=== PATIENT | female | born 1950 ===

== ENCOUNTER 2018-01-03 12:43 | Emergency (ER) | payer MEDICARE ==
[2018-01-03 13:05] VITALS: BP 114/72; PULSE 75; RESP 16; TEMP 98.8; O2SAT 99
--- NOTE | 2018-01-03 13:17 | ED PDOC ---
Upper Extremity Pain/Injury Time Seen by Provider: 01/03/18 13:06 Chief Complaint (Nursing): Upper Extremity Problem/Injury Chief Complaint (Provider): Right Fourth Finger Injury History Per: Patient, Family (daughter) History/Exam Limitations: no limitations Onset/Duration Of Symptoms: Days (x1) Current Symptoms Are (Timing): Still Present Additional Complaint(s): 67 year old female presents to the ED for follow up of a right fourth digit injury. Patient reports yesterday she fell, and went to an urgent care for hand XRs, which showed dislocation to PIP and fracture of medial phalanx of right fourth finger. The daughter reports that her mother was instructed to follow up for possible surgical intervention, but patient was unaware of where to do so outpatient, so came to the ED for a referral. Patient has no other complaints at present. Right hand dominant. PMD: Maryjo Salazar Past Medical History Reviewed: Historical Data, Nursing Documentation, Vital Signs Vital Signs: Last Vital Signs Temp 98.8 F 01/03/18 13:02 Pulse 75 01/03/18 13:02 Resp 16 01/03/18 13:02 BP 114/72 01/03/18 13:02 Pulse Ox 99 01/03/18 13:02 - Medical History Other PMH: thyroid problem - Surgical History Surgical History: No Surg Hx - Family History Family History: States: Unknown Family Hx - Social History Current smoker - smoking cessation education provided: No Alcohol: None Drugs: Denies - Allergies Allergies/Adverse Reactions: Allergies Allergy/AdvReac Type Severity Reaction Status Date / Time No Known Allergies Allergy Verified 01/03/18 13:02 Review of Systems ROS Statement: Except As Marked, All Systems Reviewed And Found Negative Musculoskeletal: Positive for: Other (right fourth finger injury) Physical Exam - Reviewed Nursing Documentation Reviewed: Yes Vital Signs Reviewed: Yes - Physical Exam Comments: GENERAL APPEARANCE: Patient is awake, alert, oriented x 3, in no acute distress. SKIN: Warm, dry; (-) cyanosis NECK: Supple, FROM ENT: Mucus membranes moist. Airway patent, (-) stridor. RIGHT HAND: Splint in place to fourth digit. Splint was not removed for PE as patient states she was given strict instructions not to remove it, as finger kept dislocating in the urgent care. Sensation intact. Split clean and dry. NEURO AND PSYCH: Mental status as above. Gait steady, speech clear. (-) facial asymmetry - ECG O2 Sat by Pulse Oximetry: 99 (RA) Pulse Ox Interpretation: Normal Medical Decision Making Medical Decision Making: Time: 1314 Initial Impression: dislocation to PIP and fx of medial phalanx of right fourth finger, as per urgent care XR report Initial Plan: --No further intervention required in ED at this time. Patient provided with referral for both hand and plastics. Advised to keep splint intact, clean, and dry until follow up is arranged. Patient was instructed to call insurance company or PMD for a referral if unable to see referred providers from ED visit. Based on history, exam and diagnostic results plan will be for discharge and outpatient follow up. Advised to follow up with primary care physician/hand/plastics in 1-2 days without fail. Return to the emergency room at any time for any new or worsening symptoms. Patient states she fully agrees with and understands discharge instructions. States that she agrees with the plan and disposition. Verbalized and repeated discharge instructions and plan. I have given the patient opportunity to ask any additional questions. Scribe Attestation: Documented by Dee Lea acting as a scribe for Anuradha Hoffman PA-C. Provider Scribe Attestation: All medical record entries made by the Scribe were at my direction and personally dictated by me. I have reviewed the chart and agree that the record accurately reflects my personal performance of the history, physical exam, medical decision making, and the department course for this patient. I have also personally directed, reviewed, and agree with the discharge instructions and disposition. Disposition - Clinical Impression Clinical Impression: Fracture of middle phalanx of finger of right hand, Dislocation of finger PIP joint - Patient ED Disposition Is Patient to be Admitted: No Counseled Patient/Family Regarding: Diagnosis, Need For Followup - Disposition Referrals: Kiki Dahl MD [Medical Doctor] - Eyal Case MD [Medical Doctor] - Disposition: Routine/Home Disposition Time: 13:16 Condition: STABLE Additional Instructions: FOLLOW UP DIRECTED WITH HAND SPECIALIST. RETURN TO ED WITH ANY NEW OR WORSENING SYMPTOMS. KEEP SPLINT IN PLACE AND DRY. Instructions: Finger Fracture, Finger Dislocation (DC), Common Finger Injuries (DC) Forms: [facility] (Upper Sorbian) Print Language: MONTENEGRIN - POA Present On Arrival: Falls Or Trauma
== END 2018-01-03 13:46 | disposition home or self-care (01) ==
LOC: H.ER 12:43
DX: S62.632A Displaced fracture of distal phalanx of right middle finger, initial encounter for closed fracture (principal); W19.XXXA Unspecified fall, initial encounter; Y92.89 Other specified places as the place of occurrence of the external cause

== ENCOUNTER 2018-09-19 12:59 | Emergency (ER) | payer MEDICARE ==
[2018-09-19 13:03] VITALS: BMI 35.1
[2018-09-19 13:04] VITALS: BP 153/82; PULSE 85; RESP 19; TEMP 98; O2SAT 97
--- NOTE | 2018-09-19 13:18 | ED PDOC ---
Upper Extremity Pain/Injury Time Seen by Provider: 09/19/18 13:09 Chief Complaint (Nursing): Upper Extremity Problem/Injury Chief Complaint (Provider): Upper Extremity Problem/Injury History Per: Patient History/Exam Limitations: no limitations Onset/Duration Of Symptoms: Hrs (2.5x hours) Current Symptoms Are (Timing): Still Present Severity: Moderate Additional Complaint(s): 68 year old female with no pertinent past medical history presents to the ED for an evaluation of left wrist pain and swelling status post fall that occurred 2.5x hours prior to arrival. Patient states that this morning she was trying to hang up curtains when she accidentally fell from her bureau, landing on her left wrist, FOOSH. Patient reports using ice and taking aleve 30x minutes prior to arrival, and is unsure if it has helped with the pain. Otherwise patient denies having any other complaints. denies any other injury, head injury, numbness or tingling. Previous burn to left hand but no other bone issues. She does note she goes to an orthopedist sometimes for issue of her right hand, does not remember doctors name but has information at home PMD: Maryjo Salazar MD Past Medical History Reviewed: Historical Data, Nursing Documentation, Vital Signs Vital Signs: Last Vital Signs Temp 98.0 F 09/19/18 13:03 Pulse 85 09/19/18 13:03 Resp 19 09/19/18 13:03 BP 153/82 H 09/19/18 13:03 Pulse Ox 97 09/19/18 13:03 VERONIKA Report Viewed: Yes - Medical History PMH: Depression, Hypothyroidism Denies: Diabetes, HTN - Surgical History Surgical History: No Surg Hx - Family History Family History: States: No Known Family Hx - Social History Current smoker - smoking cessation education provided: No Alcohol: None Drugs: Denies - Allergies Allergies/Adverse Reactions: Allergies Allergy/AdvReac Type Severity Reaction Status Date / Time No Known Allergies Allergy Verified 01/03/18 13:02 Review of Systems ROS Statement: Except As Marked, All Systems Reviewed And Found Negative Musculoskeletal: Positive for: Other (left wrist pain and swelling) Physical Exam - Reviewed Nursing Documentation Reviewed: Yes Vital Signs Reviewed: Yes - Physical Exam Comments: GENERAL APPEARANCE: Patient is awake, alert, oriented x 3, in no acute distress. SKIN: Warm, dry; (-) cyanosis. WRIST: (+) diffuse tenderness of left wrist to mid forearm, (+) swelling, (-) ecchymosis of wrist. (-) deformity. (-) distal neurovascular deficit. Decreased ROM of wrist secondary to pain, otherwise FROM of digits, elbow and shoulder, NVI LEFT UPPER EXTREMITY: pulse: 2+, capillary refill <2 seconds. Elbow, hand and digits: (-) tenderness. NEURO AND PSYCH: Mental status as above. - ECG O2 Sat by Pulse Oximetry: 97 (RA) Pulse Ox Interpretation: Normal - Radiology X-Ray: Viewed By Me, Read By Radiologist (see MDM note) Medical Decision Making Medical Decision Makin:09 Initial impression: 68 year old female with a wrist injury Initial plan: Patient declining pain medications in the ED. * XRay forearm left 3 views * XRay wrist left 3 views * reevaluation 13:47 XRay wrist read and reviewed by radiologist FINDINGS: BONES: On the lateral view there appears to be cortical irregularity of the dorsal aspect of the distal radius, as well as some possible irregularity anteriorly. Findings suggest fracture of the distal radius. No appreciable carpal bone fracture or metacarpal fracture is seen. Distal ulna appears intact. Navicular bone appears intact. JOINTS: No abnormal carpal bone widening is seen. Radiocarpal joint has some mild joint space narrowing. No erosions are seen. SOFT TISSUES: Soft tissue swelling of the left wrist. OTHER FINDINGS: None. IMPRESSION: Fracture of the distal left radius is suspected. No definite carpal bone fracture is seen. 13:48 XRay forearm read and reviewed by radiologist FINDINGS: BONES: There appears to be the suggestion of a fracture of the distal left radius seen on the wrist x-ray of the same day. Remainder of the ulna and radius appear intact. Elbow joint is unremarkable. No carpal bone fracture is seen. Mild soft tissue swelling is noted. JOINT SPACES: See above OTHER FINDINGS: None. IMPRESSION: Fracture distal left radius. 14:10 volar, dorsal splint applied by library information technician and checked by me, sensation intact, capillary refill <2 sec Pt reports pain is okay as long as she does not move her wrist, with splint on she is unable to so pain is controlled, advised to continue with [facility] [place]. Discussed results,diagnosis, treatment, return precautions and f/u with pt who is understanding, in agreement and stable for dc Scribe Attestation: Documented by Anuradha Garcia, acting as a scribe for Kristopher Haskins PA-C. Provider Scribe Attestation: All medical record entries made by the Scribe were at my direction and personally dictated by me. I have reviewed the chart and agree that the record accurately reflects my personal performance of the history, physical exam, medical decision making, and the department course for this patient. I have also personally directed, reviewed, and agree with the discharge instructions and disposition. Disposition - Clinical Impression Clinical Impression: Distal radius fracture, left - Patient ED Disposition Is Patient to be Admitted: No Counseled Patient/Family Regarding: Studies Performed, Diagnosis, Need For Followup - Disposition Referrals: Alem Sheikh MD [Staff Provider] - your, orthopedist [Other] Disposition: Routine/Home Disposition Time: 14:15 Condition: STABLE Additional Instructions: Thank you for letting us take care of you today. You were treated for wrist fracture of the radius. Keep splint on until follow up. Keep it clean and dry. Rest, ice and elevate. Take Ibuprofen or Aleve as needed for pain. Do not take them together. Follow up with your orthopedist or the one listed. The emergency medical care you received today was directed at your acute symptoms. If you were prescribed any medication, please fill it and take as directed. It may take several days for your symptoms to resolve. Return to the Emergency Department if your symptoms worsen, do not improve, or if you have any other problems. Please contact your doctor in 2 days for re-evaluation and follow up / or call one of the physicians/clinics you have been referred to that are listed on the Patient Visit Information form that is included in your discharge packet. Bring any paperwork you were given at discharge with you along with any medications you are taking to your follow up visit. Our treatment cannot replace ongoing medical care by a primary care provider (PCP) outside of the emergency department. Instructions: Radius Fracture (DC) Forms: [facility] (Belgian) Print Language: [place]OOK ISLANDER - POA Present On Arrival: Falls Or Trauma
--- NOTE | 2018-09-19 13:51 | RAD ---
Date of service: 09/19/2018 PROCEDURE: Left Wrist Radiographs. HISTORY: foosh COMPARISON: None. TECHNIQUE: Three views of the left wrist were performed. FINDINGS: BONES: On the lateral view there appears to be cortical irregularity of the dorsal aspect of the distal radius, as well as some possible irregularity anteriorly. Findings suggest fracture of the distal radius. No appreciable carpal bone fracture or metacarpal fracture is seen. Distal ulna appears intact. Navicular bone appears intact. JOINTS: No abnormal carpal bone widening is seen. Radiocarpal joint has some mild joint space narrowing. No erosions are seen. SOFT TISSUES: Soft tissue swelling of the left wrist. OTHER FINDINGS: None. IMPRESSION: Fracture of the distal left radius is suspected. No definite carpal bone fracture is seen.
--- NOTE | 2018-09-19 13:52 | RAD ---
Date of service: Trauma 09/19/2018 PROCEDURE: Radiographs of the Left Forearm HISTORY: foosh COMPARISON: None available. TECHNIQUE: Frontal and lateral views obtained. 2 views obtained. FINDINGS: BONES: There appears to be the suggestion of a fracture of the distal left radius seen on the wrist x-ray of the same day. Remainder of the ulna and radius appear intact. Elbow joint is unremarkable. No carpal bone fracture is seen. Mild soft tissue swelling is noted. JOINT SPACES: See above OTHER FINDINGS: None. IMPRESSION: Fracture distal left radius.
== END 2018-09-19 14:18 | disposition home or self-care (01) ==
LOC: H.ER 12:59
DX: S52.502A Unspecified fracture of the lower end of left radius, initial encounter for closed fracture (principal); W19.XXXA Unspecified fall, initial encounter; Y92.89 Other specified places as the place of occurrence of the external cause; E03.9 Hypothyroidism, unspecified